=== PATIENT | male | born 1995 | race Caucasian/White ===

== ENCOUNTER 2021-05-03 12:42 | Outpatient (CLI) | payer MEDICARE, MEDICAID | END 2021-05-03 12:43 | disposition home or self-care (01) | LOC: ULT 12:42 | PROVIDERS: ATTEND Thoracic Surgery (Cardiothoracic Vascular Surgery) | DX: G56.03 Carpal tunnel syndrome, bilateral upper limbs (principal); M79.641 Pain in right hand; M79.642 Pain in left hand | CPT/HCPCS: 93923; 93970 ==

== ENCOUNTER 2022-03-16 09:11 | Outpatient (CLI) | payer MEDICARE, MEDICAID ==
[2022-03-16] MEDS ORDERED: Iopamidol 370 76% 100 ML VIAL ONE (11:59)
== END 2022-03-16 09:12 | disposition home or self-care (01) ==
LOC: BICCT 09:11
PROVIDERS: ATTEND Physician Assistant Medical
DX: A04.72 Enterocolitis due to Clostridium difficile, not specified as recurrent (principal); R10.33 Periumbilical pain; N32.89 Other specified disorders of bladder; M41.9 Scoliosis, unspecified
CPT/HCPCS: 74177; Q9967

== ENCOUNTER 2022-03-25 15:18 | Emergency (ER) | payer MEDICARE, MEDICAID ==
[~2022-03-25 15:18] MED LIST: Iopamidol-370 76% 500 ML 1 ML ONE
[2022-03-25] MEDS ORDERED: Ondansetron PF 4 MG/2 ML Vial ONE ×2 (16:00→19:25)
[2022-03-25 16:10] LABS: #Lymphocytes 0.8 thou/uL (1.20-3.40); #Monocytes 0.3 thou/uL (0.11-0.59); #Neutrophils 4.8 thou/uL (1.40-6.50); %Basophils 0.4 % (0.0-1.0); %Eosinophils 0.4 % (0.0-10.0); %Lymphocytes 13.7 % (21.0-51.0); %Monocytes 5.4 % (0.0-10.0); %Neutrophils 80.2 % (42.0-75.0); Hemoglobin 16.3 g/dL (14.0-18.0); Mean Corpuscular HGB CONC 33.9 g/dL (32.0-36.0); Mean Corpuscular Hemoglobin 34.9 pg (27.0-31.0); Mean Platelet Volume 7.6 fL (7.4-10.4); Platelet Count 257 10x3/uL (130-400); RBC Distribution Width 11.7 % (11.5-14.5); Red Blood Cell (RBC) Count 4.67 mill/uL (4.70-6.10)
[2022-03-25 16:42] LABS: ALT (SGPT) 19 U/L (8-55); AST (SGOT) 15 U/L (5-34); Albumin 4.7 g/dL (3.5-5.0); Alkaline Phosphatase 78 U/L (40-110); Anion Gap 12 mmol/L (10-20); BUN (Urea Nitrogen) 9 mg/dL (8.9-20.6); Bilirubin, Total 0.7 mg/dL (0.2-1.2); Calc. Creatinine Clearance 0 mL/min (70-130); Carbon Dioxide 31 mmol/L (22-29); Chloride 103 mmol/L (98-107); Estimated GFR 115; Globulin 2.8 g/dL (2.4-3.5); Glucose 99 mg/dL (70-105); Lipase 21 U/L (8-78); Magnesium 2.1 mg/dL (1.6-2.6); Potassium 3.8 mmol/L (3.5-5.1); Protein, Total 7.5 g/dL (6.0-8.3); Sodium 142 mmol/L (136-145)
[2022-03-25 18:58] LABS: Bilirubin Negative (Negative); Blood, Urine Negative (Negative); Clarity Clear (Clear); Glucose, Urine (Dipstick) Normal (Negative); Ketone, Urine 10 mg/dL (Negative); Leukocyte Negative Leu/uL (Negative); Nitrite Negative (Negative); Protein, Urine (Dipstick) Negative (Neg-Trace); Specific Gravity, Urine 1.012 (1.002-1.036); Urobilinogen Normal mg/dL (Less than 2)
== END 2022-03-25 20:41 | disposition home or self-care (01) ==
LOC: ERS 15:18
DX: A04.72 Enterocolitis due to Clostridium difficile, not specified as recurrent (principal); R11.2 Nausea with vomiting, unspecified; E86.0 Dehydration
CPT/HCPCS: 74177; 80053; 81003; 83690; 83735; 85025; 96374; 96376; J2405; Q9967

== ENCOUNTER 2022-04-06 06:56 | Day surgery (SDC) | payer MEDICARE, MEDICAID ==
[2022-04-05 10:35] VITALS: BMI 18.8
[2022-04-06] MEDS ORDERED: PROPOFOL 200 MG/20 ML VIAL ONE (09:40)
== END 2022-04-06 12:11 | disposition home or self-care (01) ==
LOC: SDC 06:56
PROVIDERS: ATTEND Internal Medicine Gastroenterology
PROC: 0DB98ZX Excision of Duodenum, Via Natural or Artificial Opening Endoscopic, Diagnostic (ICD-10-PCS; principal; 2022-04-06)
PROC: 0DBG8ZX Excision of Left Large Intestine, Via Natural or Artificial Opening Endoscopic, Diagnostic (ICD-10-PCS; 2022-04-06)
PROC: 0DBF8ZX Excision of Right Large Intestine, Via Natural or Artificial Opening Endoscopic, Diagnostic (ICD-10-PCS; 2022-04-06)
DX: R19.7 Diarrhea, unspecified (principal); R19.8 Other specified symptoms and signs involving the digestive system and abdomen; K62.89 Other specified diseases of anus and rectum; Q90.9 Down syndrome, unspecified; F79 Unspecified intellectual disabilities; E03.9 Hypothyroidism, unspecified; R63.0 Anorexia; R63.4 Abnormal weight loss; Z68.1 Body mass index [BMI] 19.9 or less, adult; Z79.2 Long term (current) use of antibiotics; Z79.890 Hormone replacement therapy
CPT/HCPCS: 82607; 88305; J2704